=== PATIENT | male | born 1960 | race Caucasian/White ===

== ENCOUNTER 2017-08-20 16:49 | Emergency (ER) | payer BC, OTHER ==
[2017-08-20 17:42] LABS: BASOPHILS # (AUTO) 0.1 10^3/uL (0.0-0.1); EOSINOPHILS # (AUTO) 0.2 10^3/uL (0.0-0.7); EOSINOPHILS % (AUTO) 1.7 %; HGB - HEMOGLOBIN 17.4 g/dL (14.0-18.0); LYMPHOCYTES # (AUTO) 2.4 10^3/uL (1.5-3.5); LYMPHOCYTES % (AUTO) 25.4 %; MEAN CORPUSCULAR HEMOGLOBIN 32.7 pg (27.0-31.0); MEAN CORPUSCULAR HGB CONC 35.8 g/dL (32.0-36.0); MEAN CORPUSCULAR VOLUME 91.5 fL (80.0-94.0); MEAN PLATELET VOLUME 8.9 fL (7.4-11.4); MONOCYTES # (AUTO) 0.9 10^3/uL (0.0-1.0); MONOCYTES % (AUTO) 9.3 %; NEUTROPHILS # (AUTO) 5.9 10^3/uL (1.5-6.6); NEUTROPHILS % (AUTO) 62.6 %; PLT - PLATELET COUNT 239 10^3/uL (130-450); RED BLOOD COUNT 5.32 10^6/uL (4.70-6.10); RED CELL DISTRIBUTION WIDTH 12.6 % (12.0-15.0); WHITE BLOOD COUNT 9.4 x10^3/uL (4.8-10.8)
[2017-08-20 17:55] LABS: ALBUMIN 4.5 g/dL (3.2-5.5); BILIRUBIN,TOTAL 1.3 mg/dL (0.2-1.0); CALCIUM 9.4 mg/dL (8.5-10.3); CREATININE 0.8 mg/dL (0.6-1.2)
--- NOTE | 2017-08-20 18:04 | ED Physician Documentation ---
PD HPI URI - Stated complaint Stated Complaint: HIGH BP - Chief complaint Chief Complaint: Cardiac - History obtained from History obtained from: Patient - History of Present Illness Timing - onset: How many days ago (few) Timing duration: Days (few days of not feeling well with malaise and some headache. No fevers Noted HR and BP to be elevated.) Timing details: Gradual onset, Waxing and waning Associated symptoms: Nasal congestion, Bilateral edema (mild during days and improves with elevation). No: Fever, Chills, Sinus pain, Sore throat, Dry cough , Hemoptysis, Chest pain, Dyspnea, NVD Contributing factors: No: Sick contact, Travel, Immunocompromised, COPD / asthma Similar symptoms before: No diagnosis (has had some headache and feeling weak associated with BP elevated and HR high in the past. No firm Dx. Has been on same BP meds awhile without change in dose. He states he has been taking meds regularly.) Recently seen: Not recently seen Review of Systems Constitutional: denies: Fever, Chills Nose: denies: Rhinorrhea / runny nose, Congestion Throat: denies: Sore throat Cardiac: reports: Pedal edema (mild both legs during the day; better when elevated or rest.). denies: Chest pain / pressure, Palpitations Respiratory: denies: Dyspnea, Cough GI: denies: Abdominal Pain, Nausea, Vomiting, Diarrhea : denies: Dysuria, Frequency Skin: denies: Rash Musculoskeletal: denies: Neck pain, Back pain PD PAST MEDICAL HISTORY - Past Medical History Cardiovascular: Hypertension - Past Surgical History Past Surgical History: No - Present Medications Home Medications: Ambulatory Orders Medication Instructions Recorded Confirmed Nebivolol HCl [Bystolic] 0 mg PO DAILY 01/04/16 01/04/16 Pantoprazole Sodium [Protonix] 0 mg PO DAILY 01/04/16 01/04/16 hydroCHLOROthiazide 0 tab PO DAILY 01/04/16 01/04/16 [Hydrochlorothiazide] Naproxen 375 mg PO BID #20 tablet 08/20/17 Nebivolol HCl [Bystolic] 15 mg PO DAILY #30 tablet 08/20/17 Potassium Chloride 10 meq PO DAILY #10 tablet.er 08/20/17 - Allergies Allergies/Adverse Reactions: Allergies Allergy/AdvReac Type Severity Reaction Status Date / Time No Known Drug Allergies Allergy Verified 01/04/16 10:38 - Social History Does the pt smoke?: No Smoking Status: Never smoker Does the pt drink ETOH?: Yes Does the pt have substance abuse?: No - Family History Family history: reports: CAD - Immunizations Immunizations are current?: Yes - POLST Patient has POLST: No PD ED PE NORMAL - Vitals Vital signs reviewed: Yes - General General: Alert and oriented X 3, Well developed/nourished, Other (Seems slightly anxious and has some shakiness. When asked about regular alcohol use or recent stopping of it, he says he drinks in binges and had had reasonably large amount over weekend. Denies dainily use all the time. ) - HEENT HEENT: Atraumatic, Pharynx benign. No: Moist mucous membranes - Neck Neck: Supple, no meningeal sign, No adenopathy - Cardiac Cardiac: RRR, No murmur - Respiratory Respiratory: Clear bilaterally - Abdomen Abdomen: Normal bowel sounds, Soft, Non tender - Back Back: No CVA TTP - Derm Derm: Normal color, Warm and dry, No rash - Extremities Extremities: No deformity, No edema, No calf tenderness / cord - Neuro Neuro: Alert and oriented X 3 Eye Opening: Spontaneous Motor: Obeys Commands Verbal: Oriented GCS Score: 15 - Psych Psych: Normal mood Results - Vitals Vitals: Oxygen O2 Source Room air - EKG (time done) 17:02 Rate: Rate (enter#) (126) Rhythm: Sinus tachycardia [place]: Normal Intervals: Normal IN QRS: Normal Ischemia: Normal ST segments. No: ST elevation c/w ischemia, ST depression - Labs Labs: Laboratory Tests 08/20/17 08/20/17 08/20/17 17:05 17:05 17:05 WBC 9.4 RBC 5.32 Hgb 17.4 Hct 48.7 MCV 91.5 MCH 32.7 H MCHC 35.8 RDW 12.6 Plt Count 239 MPV 8.9 Neut # 5.9 Lymph # 2.4 [place] # 0.9 Eos # 0.2 Baso # 0.1 Absolute Nucleated RBC 0.01 Nucleated RBC % 0.1 Sodium 139 Potassium 3.2 L Chloride 99 L Carbon Dioxide 26 Anion Gap 14.0 H BUN 14 Creatinine 0.8 Estimated GFR (MDRD) 100 Glucose 153 H Calcium 9.4 Total Bilirubin 1.3 H AST 71 H ALT 64 H Alkaline Phosphatase 98 Troponin I < 0.04 Total Protein 9.0 H Albumin 4.5 Globulin 4.5 H Albumin/Globulin Ratio 1.0 Lipase 36 PD MEDICAL DECISION MAKING - ED course Complexity details: reviewed results, re-evaluated patient, considered differential (consider endocarditis, though not main risks for that. he has some suggestion of alcohol withdrawal (shaky and tachy with high bp0, but he denies regular use though higher amounts at times (like this past weekend).), d/ w patient Departure - Departure Disposition: 01 Home, Self Care Clinical Impression: Tachycardia Hypertension Qualifiers: Hypertension type: unspecified Qualified Code(s): I10 - Essential (primary) hypertension Condition: Stable Record reviewed to determine appropriate education?: Yes Follow-Up: Abhijeet Parada MD [Primary Care Provider] - Prescriptions: Naproxen 375 mg PO BID #20 tablet Nebivolol HCl [Bystolic] 15 mg PO DAILY #30 tablet Potassium Chloride 10 meq PO DAILY #10 tablet.er Comments: Your heart rate is a little bit fast. There are some mild nonspecific changes on your EKG that could suggest some inflammation around the heart. For that I would suggest some naproxen twice daily for the next 7-10 days. There is no signs of heart attack or heart failure. Your blood pressure is elevated and along with a heart rate I would suggest increasing your by systolic from 10-15 mg daily and see how it does over the next few days. Call Dr. lau's office in the next 2-3 days to update them on how you are feeling and how your blood pressure and heart rate are doing. Return if worsening symptoms. Your potassium was also low so add a potassium supplement for the next week. This may be related to some of the heart rate and blood pressure. Discharge Date/Time: 08/20/17 19:22
[2017-08-20] MEDS ORDERED: KETOROLAC 60 MG/2 ML VIAL IVP STA (18:33)
[2017-08-20] MEDS ORDERED: METOPROLOL 5 MG/5 ML VIAL IVP STA (18:33)
[2017-08-20] MEDS ORDERED: POTASSIUM BICARB 25 MEQ TABLET PO STA (19:12)
[2017-08-20 19:17] VITALS: BP 166/112
== END 2017-08-20 19:22 | disposition home or self-care (01) ==
LOC: ED 16:49
DX: I10 Essential (primary) hypertension (principal); R00.0 Tachycardia, unspecified
CPT/HCPCS: 36415; 80053; 83690; 84484; 85025; 93005; 96374; 96375; 99284; A9270